=== PATIENT | male | born 1975 | race Caucasian/White ===

== ENCOUNTER 2017-02-10 08:11 | Emergency (ER) | payer MEDICAID ==
[~2017-02-10] VITALS: Ht 188 cm; Wt 113.3 kg
[2017-02-10] MEDS ORDERED: PROAIR HFA8.5 GM INH (08:58)
[2017-02-10] MEDS ORDERED: FLEXERIL10 MG PO (09:00)
== END 2017-02-10 09:10 | disposition short-term general hospital (02) ==
LOC: ER 08:11
PROC: 08C9XZZ Extirpation of Matter from Left Cornea, External Approach (ICD-10-PCS; principal; 2017-02-10)
DX: T15.02XA Foreign body in cornea, left eye, initial encounter (principal)